=== PATIENT | female | born 1955 | race Caucasian/White ===

== ENCOUNTER 2018-03-01 14:57 | Emergency (ER) | payer OTHER ==
[~2018-03-01] VITALS: Ht 149.8 cm; Wt 68.0 kg
[~2018-03-01 14:57] MED LIST: AMOXICILLIN500 MG PO; DIFLUCAN150 MG PO
[2018-03-01 16:10] VITALS: BP 147/60
== END 2018-03-01 16:53 | disposition home or self-care (01) ==
LOC: ED 14:57
DX: S42.122A Displaced fracture of acromial process, left shoulder, initial encounter for closed fracture (principal); S16.1XXA Strain of muscle, fascia and tendon at neck level, initial encounter; S00.93XA Contusion of unspecified part of head, initial encounter; S60.312A Abrasion of left thumb, initial encounter; V89.2XXA Person injured in unspecified motor-vehicle accident, traffic, initial encounter; Y93.89 Activity, other specified; Y92.410 Unspecified street and highway as the place of occurrence of the external cause; Y99.8 Other external cause status